=== PATIENT | female | born 1990 | race Two or more races ===

== ENCOUNTER 2017-11-01 08:08 | Outpatient (CLI) | payer OTHER ==
[~2017-11-01 08:08] MED LIST: CAMBIA50 MG PO; PERCOCET 5/3251 TAB PO
== END 2017-11-01 08:21 | disposition home or self-care (01) ==
LOC: MRI 08:08
DX: E22.1 Hyperprolactinemia (principal)
CPT/HCPCS: 70552

== ENCOUNTER 2017-11-05 05:43 | Day surgery (SDC) | payer OTHER | END 2017-11-05 09:50 | disposition home or self-care (01) | LOC: CIR.AMB 05:43 | DX: N84.0 Polyp of corpus uteri (principal) ==